=== PATIENT | female | born 1965 ===

== ENCOUNTER 2017-11-18 14:44 | Outpatient (CLI) | payer OTHER ==
[~2017-11-18] VITALS: Ht 160 cm; Wt 68.0 kg
== END 2017-11-18 15:00 | disposition home or self-care (01) ==
LOC: OFIC 805 14:44
DX: J32.8 Other chronic sinusitis (principal); J34.0 Abscess, furuncle and carbuncle of nose; J34.89 Other specified disorders of nose and nasal sinuses